=== PATIENT | male | born 1955 | race Caucasian/White ===

== ENCOUNTER 2021-11-13 11:20 | Emergency (ER) | payer OTHER, MEDICARE, SELFPAY ==
[2021-11-13 11:50] VITALS: BP 171/91; PULSE 71; RESP 16; TEMP 36.9; O2SAT 99; BMI 20.7
--- NOTE | 2021-11-13 12:07 | XR_ITS ---
WS: [id number] XR shoulder RT min 2V* [id number] REASON FOR EXAM: stack of wood fell on pt shoulder FINDINGS: No acute fracture. 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 There is mild narrowing of the glenohumeral joint space. Small focal deformity with sclerosis seen in the humeral head on the internal rotation. This is assoc iated with sclerosis and deformity of the inferior glenoid. XR/XR shoulder RT min 2V* [id number] IMPRESSION: No acute abnormality identified. Old traumatic change in the distal clavicle and AC joint as above. Findings in the glenohumeral joint suggests Hill-Sachs and Bankart lesions would suggest pr evious anterior dislocation. Historical correlation to be made.
--- NOTE | 2021-11-13 12:07 | XR_ITS ---
WS: [id number] XR ribs BI mn 4V w CXR1V [id number] REASON FOR EXAM: stack of wood fell onto pt-bilateral rib pain FINDINGS: RIGHT RIBS: No fracture or other focal bone lesion. Underlying right lung and pleura are unremarkable. LEFT RIBS: Very subtle deformity of left ribs laterally 7 through 9. Uncertain whether this represents old heale d or subacute fractures. No abnormality of the underlying left lung or pleura. XR/XR ribs BI mn 4V w CXR1V [id number] IMPRESSION: No acute right rib abnormality. Subtle abnormality of the left ribs as above.
--- NOTE | 2021-11-13 12:09 | ED_ITS ---
HPI - Extremity Problem General: Chief complaint: Extremity Injury, Upper Stated complaint: fall, rib pain, right shoulder pain Time Seen by Provider: 11/13/21 11:55 History of Present Illness: Patient is a 66-year-old male that comes to the ED with right shoulder bilateral rib pain. Injury occurred approximately 5 days ago. Patient said he was getting some firewood from tall stack of wood outside. He was grabbing a piece of firewood off the top and then couple of other pieces of wood fell down and hit him in his shoulder and chest. He has been having pleuritic rib pain and tenderness on both the left and right side along with right shoulder pain since injury. Any torso movement, upper extremity movement or coughing worsens the rib pain. He rates his pain currently 9 out of 10. Denies any head trauma or loss of consciousness. Associated symptoms: Deny chest pain, fever(s) or rash Review of Systems Const: Denies: fever(s), chills or fatigue Eyes: Denies: change in vision or eye discomfort ENMT: Denies: throat pain, odynophagia, nasal discharge or nasal congestion Card: Denies: chest pain, palpitations, edema, swelling of feet/ankles, dyspnea on exertion or orthopnea Resp: Reports: pain on inspiration (bilateral lower rib pain); Denies: dyspnea, productive cough or non-productive cough GI: Denies: abdominal pain, nausea, vomiting, diarrhea, constipation or hematochezia : Denies: flank pain, difficulty urinating, dysuria or hematuria Musc: Reports: extremity pain (right shoulder); Denies: neck pain, back pain or extremity swelling Skin/Breast: Denies: rash or new lesions Neuro: Denies: headache(s), numbness in extremities or weakness in extremities [facility] ED PFSH: Medical History No pertinent family history Surgical History No pertinent past surgical history Physical Exam Const: COMMON NORMALS: no acute distress, patient oriented x3 and alert GENERAL APPEARANCE: cooperative and comfortable HENMT: COMMON NORMALS: normocephalic HEAD & SCALP: normocephalic MOUTH: Normal oral and palatal mucosa present THROAT: posterior oropharynx normal and uvula midline Neck/C-Spine: COMMON NORMALS: supple GENERAL: Yes normal visual inspection Chest: CHEST: Yes tenderness rib left anterior-axillary line involving the 8th rib and involving the 9th rib Resp: COMMON NORMALS: normal respiratory effort, No retractions, No use of accessory muscles and clear to auscultation bilaterally AUSCULTATION: clear to auscultation bilaterally Cardio: COMMON NORMALS: regular rate, regular rhythm, S1 normal heart sound present, S2 normal heart sound present, No gallops present (Cardio), No clicks present (Cardio), No murmurs present (Cardio) and Peripheral pulses 2+ throughout RATE: regular rate RHYTHM: regular rhythm HEART SOUNDS: S1 normal heart sound present and S2 normal heart sound present PERIPHERAL PULSES: Peripheral pulses 2+ throughout GI: COMMON NORMALS: Normal to inspection, nondistended, normoactive bowel sounds present, Soft to palpation, non-tender and no masses PALPATION: Yes Soft to palpation : COMMON NORMALS: Yes no CVA tenderness BLADDER/KIDNEY EXAM: Yes no CVA tenderness Back/Pelvis: COMMON NORMALS: no CVA tenderness Extremity: GENERAL: Yes normal exam except as noted RIGHT UPPER EXTREMITY: Yes shoulder joint Right shoulder: Yes Right shoulder joint inspection exam (No visible deformity seen. Tenderness at AC joint), Yes palpation, Yes Right shoulder joint ROM exam (Pain with abduction of right arm) and Yes Right shoulder joint neurovascular exam (Intact) Neuro: COMMON NORMALS: patient oriented x3 and moves all extremities SENSORIUM/ORIENTATION: Yes alert Course Vital Signs: Vital signs: Vital Signs Temperature 98.4 F 11/13/21 11:50 Pulse Rate 66 11/13/21 13:39 Respiratory Rate 16 11/13/21 13:39 Blood Pressure 151/78 11/13/21 13:39 Pulse Oximetry 99 11/13/21 13:39 MDM - Extremity (Nontraumatic) Medical Decision Making Patient is a 66-year-old male comes to the ED with an injury to right shoulder and ribs. Vitals stable. Patient has some left lower rib tenderness and some right shoulder tenderness to palpation. Neurovascular intact distally on right arm. The rest of exam is benign. X-ray of ribs showed possible subacute fractures on the left ribs 8 and 9. Shoulder x-ray showed no acute abnormality identified. Possible old glenohumeral joint injury. I placed an order with case management for patient to be referred to Ortho for further evaluation of shoulder injury. Patient diagnosed with right shoulder injury and rib fractures. Patient was sent home with a prescription for hydrocodone for pain. He was also sent home with an incentive spirometer to help with his breathing and to prevent any atelectasis and pneumonia developing. Return to ED precautions given. Patient was all to follow-up with his PCP in 3 to 5 days for reevaluation. Patient understood and agree with plan. Lab Data Radiology Impressions Ribs w/Chest X-Ray 11/13/21 12:07 IMPRESSION: No acute right rib abnormality. Subtle abnormality of the left ribs as above. Shoulder X-Ray 11/13/21 12:07 IMPRESSION: No acute abnormality identified. Old traumatic change in the distal clavicle and AC joint as above. Findings in the glenohumeral joint suggests Hill-Sachs and Bankart lesions would suggest previous anterior dislocation. Historical correlation to be made. Discharge Plan Discharge Patient Disposition: Home Clinical Impression: Rib fractures Qualifiers: Encounter type: initial encounter Fracture type: closed Laterality: left Qualified Code(s): S22.42XA - Multiple fractures of ribs, left side, initial encounter for closed fracture Injury of shoulder, right Qualifiers: Encounter type: initial encounter Qualified Code(s): S49.91XA - Unspecified injury of right shoulder and upper arm, initial encounter Condition: Stable Prescriptions: New ibuprofen 800 mg tablet 800 mg PO Q8H PRN (Reason: pain) Qty: 30 0RF Discharge Orders: Discharge ED (Routine); Ordered 11/13/21 Ordered By: Walter Ayala Discharge Diet: Regular Discharge Activity: Limit activity as instructed Patient Instructions: Rib Fracture (ED), Shoulder Pain (ED), Opioid Safety Activity Restrictions/Additional Instructions: Follow-up with medical provider as directed in the next 3 to 5 days for reevaluation. Case management should be contacting you in the next several days to set up an appointment with Ortho for further follow-up and management of right shoulder pain. Take medications as prescribed. return to the ER or your medical provider if condition worsens. Please read and understand discharge instructions. Thank you for choosing [facility] for your healthcare needs today. Please realize this is an emergency room and that we are providing you with a medical screening exam and this may not be complete and all inclusive of all the testing and or work up that you may need to determine your ailment or severity of your illness. It is very important that you follow up as instructed or that you return to the Emergency Department should you have concerns or if your condition changes or worsens in any way. Coding Level of Care Code ED Repair Service Dispatcher for Walter Jesus Exam Comprehensive
[2021-11-13] MEDS: HYDROcodone-acetaminophen 7.5-325 mg Tablet 1 TAB PO (12:15)
[2021-11-13 13:39] VITALS: BP 151/78; PULSE 66; RESP 16; O2SAT 99
--- NOTE | 2021-11-14 09:02 | DCPLANNER ---
Addendum entered by Jeri Lyons 12/01/21 11:30: Patient had a follow up appointment scheduled for 11.21.21 with Jose STATON - patient did attend appointment. Addendum entered by Jeri Lyons 11/17/21 05:30: Patient has a follow up appointment scheduled for Sunday, November 21, 2021 at 10:30 with Jose MEYERS. Clinic will call patient with appointment information. Original Note: dock manager had message to schedule a follow up appointment for patient with ortho. dock manager called the ortho clinic, spoke with Cheri, gave clinic patients information. dock manager was told that patients information would be printed and reviewed. Clinic will call patient with appointment information.
== END 2021-11-13 13:40 | disposition home or self-care (01) ==
PROVIDERS: Emergency Provider Physician Assistant
DX: S22.42XA Multiple fractures of ribs, left side, initial encounter for closed fracture (principal); S49.91XA Unspecified injury of right shoulder and upper arm, initial encounter; W20.8XXA Other cause of strike by thrown, projected or falling object, initial encounter
CPT/HCPCS: 71111; 73030; 99283

== ENCOUNTER → 2021-11-21 10:33 | Outpatient (BNVA) | payer OTHER, MEDICARE, SELFPAY | PROVIDERS: Referring Provider Physician Assistant; Visit Provider Physician Assistant | DX: S49.91XA Unspecified injury of right shoulder and upper arm, initial encounter (principal); X58.XXXA Exposure to other specified factors, initial encounter | CPT/HCPCS: 73030 ==

== ENCOUNTER → 2025-01-26 09:17 | Outpatient (BNVA) | payer OTHER, SELFPAY | PROVIDERS: Visit Provider Surgery | DX: K46.9 Unspecified abdominal hernia without obstruction or gangrene (principal) | CPT/HCPCS: 99203 ==

== ENCOUNTER 2025-02-01 11:29 | Outpatient (CLI) | payer OTHER, SELFPAY ==
[2025-02-01 13:27] LABS: Blood Urea Nitrogen 7 mg/dL (8-23); Glomerular Filtration Rate 66.6 mL/min (90-130)
--- NOTE | 2025-02-01 13:30 | CT_ITS ---
WS: [id number] CT ABDOMEN AND PELVIS WITH CONTRAST HISTORY: recurrent right inguinal hernia TECHNIQUE: Imaging performed of the abdomen and pelvis with IV contrast. Single phase imaging of the abdomen. Coronal and sagittal reformats are submitted. All CT scans at [facility] use at least one of these dose optimization techniques: automated exposure control; mA and/or kV adjustment per patient size (includes targeted exams where dose is matched to clinical indication); or iterative reconstruction. IV CONTRAST: Omnipaque 350; 100 mL IV. Oral contrast: Yes. DLP: 266.61 mGy.cm COMPARISON: None available. Lower thorax: Hyperinflated lung bases from emphysema. LEFT lower lobe subpleural nodules measuring up to 3 mm. No mass. Heart is normal size. Small hiatal hernia. Liver/biliary system: Normal size with no intrahepatic dilatation. Gallbladder: Normal. No gallstones or wall thickening. No pericholecystic fluid. Pancreas: Normal size pancreas and pancreatic duct. No adjacent inflammation. Spleen: Normal size spleen. No mass or infarct. Adrenal glands: Normal. Right kidney: Normal size with no obstruction. There are a few tiny cortical hypodensities. No calcifications. Left kidney: Normal size with no obstruction. 2.1 cm superior medial kidney. Aorta: Mild atherosclerosis with no aneurysm. Lymphadenopathy: None. Free fluid: None. GI tract: Nondistended stomach. No small bowel obstruction. Normal appendix. Beginning in the descending colon and extending to the rectum is marked colonic wall thickening with numerous diverticula. There is asymmetric thickening at several locations. Focal diverticulum from the distal LEFT lateral sigmoid in contact with a loop of more distal redundant sigmoid/rectum. No definite fistula although there is contact via the diverticula. There is an fistulous communication between the sigmoid and the bladder wall. Abscess within the fundus of the bladder wall just central and the LEFT of the midline measures 2.1 x 0.8 cm. There is continuity with a sigmoid diverticulum into the bladder wall. There is marked diffuse bladder wall thickening. Abdominal wall: Ventral abdominal wall hernia at the umbilicus contains fat only. Patent LEFT inguinal canal. Contains fat only. Pelvis: No free fluid. Marked diffuse bladder wall thickening. There is a tiny focus of air within the urinary bladder and also abscess within the bladder wall near the fundus. Bones: Degenerative disc disease at L4-5. CT/CT abdomen pelvis w con* [id number] IMPRESSION: 1. Colovesical fistula. There is a fistula between the sigmoid colon and the f undus of the urinary bladder. Focal abscess within the bladder wall measuring 2 .1 x 0.8 cm. There is no definite continuity of the fistula directly into the l umen of the bladder although there is a tiny focus of air in the urinary bladde r. 2. Severe extensive distal colonic and sigmoid diverticulosis with marked wall thickening and asymmetry of the lumen. Colonoscopy will eventually need to be performed to exclude underlying mass. 3. Diffuse bladder wall thickening. 4. There is an additional redundant sigmoid with diverticula in contact with a loop of more distal colon. No fistula at this time but there is no separation between the colon wall. 5. Fat-containing umbilical hernia. 6. Fat-containing LEFT inguinal hernia. 7. Normal appendix. 8. No renal obstruction.
[2025-02-01] MEDS: iohexol 350 mg/mL 500 mL Btl (per mL) IV (13:34)
[2025-02-01] MEDS: iohexol 350 mg/mL 500 mL Btl (per mL) PO (13:35)
== END 2025-02-01 11:30 | disposition home or self-care (01) ==
LOC: RAD 11:36
PROVIDERS: PCP Family Medicine; Visit Provider Surgery
DX: K42.9 Umbilical hernia without obstruction or gangrene (principal); N32.1 Vesicointestinal fistula; R93.89 Abnormal findings on diagnostic imaging of other specified body structures; K57.30 Diverticulosis of large intestine without perforation or abscess without bleeding; N32.89 Other specified disorders of bladder; K40.90 Unilateral inguinal hernia, without obstruction or gangrene, not specified as recurrent; J43.9 Emphysema, unspecified; R91.8 Other nonspecific abnormal finding of lung field; K44.9 Diaphragmatic hernia without obstruction or gangrene; I70.0 Atherosclerosis of aorta; K43.9 Ventral hernia without obstruction or gangrene; M51.369 Other intervertebral disc degeneration, lumbar region without mention of lumbar back pain or lower extremity pain
CPT/HCPCS: 74177; 82565; 84520

== ENCOUNTER → 2025-02-03 12:29 | Outpatient (BNVA) | payer OTHER, SELFPAY | PROVIDERS: PCP Family Medicine; Referring Provider Surgery; Visit Provider Surgery | DX: Z09 Encounter for follow-up examination after completed treatment for conditions other than malignant neoplasm (principal); R03.0 Elevated blood-pressure reading, without diagnosis of hypertension; N32.1 Vesicointestinal fistula | CPT/HCPCS: 99214 ==

== ENCOUNTER 2025-06-04 11:54 | Inpatient (IN) | payer OTHER, SELFPAY ==
[2025-06-04] VITALS (40 sets, daily range): BP systolic 86–112; BP diastolic 46–65; PULSE 54–73; RESP 13–27; TEMP 36.4–36.6; O2SAT 92–100; BMI 18.6
--- NOTE | 2025-06-04 11:57 | ECG_ITS ---
[facility] Test Date: 2025-06-04 Pat Name: Sagar Beverly Department: Room: Gender: Male Urgent Care Technician: : 1955 Requested By: Tho Zuñiga Order Number: [id number] Karo MD: Sriram Talavera M.D. Measurements Intervals [place] Rate: 61 P: 80 WV: 158 QRS: 79 QRSD: 70 T: 76 QT: 414 QTc: 417 Interpretive Statements SINUS RHYTHM No previous ECG available for comparison Electronically Signed On 06-04-2025 22:38:02 CDT by Sriram Talavera M.D. [email or web address]
[2025-06-04 12:16] LABS: Hematocrit 42.0 % (37-53); Hemoglobin 14.30 g/dL (11.27-16.99); Mean Corpuscular HGB Conc 34.0 g/dL (30-55); Mean Corpuscular Hemoglobin 31.4 pg (27-33); Mean Corpuscular Volume 92.1 fl (82-101); Nucleated Red Blood Cells % 0 %; Platelet Count 302 10^3/cmm (157-399); Red Blood Count 4.56 10^6/uL (3.85-5.65); White Blood Count 15.63 10^3/uL (3.29-11.43)
--- NOTE | 2025-06-04 12:21 | W.ED.ABDPA2 ---
HPI - Abdominal Pain General: Chief Complaint: Abdominal Pain Stated Complaint: abd pain, htn Time Seen by Provider: 06/04/25 11:56 History of Present Illness: 70-year-old male presents emergency room via EMS for complaints of abdominal pain. Patient previous had a colon resection as a ileostomy due to a colon resection for acute diverticulitis. This was done just a few months ago shortly after that he developed an ulcer and had to be transferred back to [place]. Patient is currently complaining of severe abdominal pain he still is getting output from his colostomy he has been very nauseous. He has not been able to keep anything down he has vomited multiple times. He denies any hematemesis or coffee-ground emesis. No fever no dysuria urgency or frequency Associated Symptoms: Reports bloating, GI cramping, nausea and vomiting; Denies chills, coffee ground emesis, dysuria, fever(s), hematochezia and hematemesis Related Data Home Medications ?Medication ?Instructions ?Recorded ?Confirmed lisinopril 20 mg tablet 20 mg PO DAILY 01/26/25 06/04/25 loperamide 2 mg capsule 2 mg PO Q6H PRN Diarrhea 06/04/25 06/04/25 ondansetron 8 mg disintegrating 8 mg PO Q8H PRN Nausea And Vomiting 06/04/25 06/04/25 tablet oxycodone 5 mg tablet 10 mg PO Q4H PRN Pain 06/04/25 06/04/25 pantoprazole 40 mg tablet,delayed 40 mg PO BID 06/04/25 06/04/25 release Allergies Allergy/AdvReac Type Severity Reaction Status Date / Time No Known Allergies Allergy Verified 06/04/25 12:07 Review of Systems Const: Denies: fever(s) or chills Card: Denies: chest pain Resp: Denies: dyspnea GI: Reports: abdominal pain, nausea, vomiting, bloating and GI cramping; Denies: hematemesis, coffee ground emesis or hematochezia : Denies: dysuria, urinary frequency or urinary urgency Musc: Denies: neck pain or back pain Skin/Breast: Denies: rash PFSH ED PFSH: Medical History No pertinent family history Surgical History No pertinent past surgical history Physical Exam Const: GENERAL APPEARANCE: cooperative ORIENTATION/CONSCIOUSNESS: Yes awake, Yes oriented to person, Yes oriented to place and Yes oriented to time HENMT: COMMON NORMALS: normocephalic, atraumatic and hearing grossly normal bilaterally HEAD & SCALP: normocephalic and atraumatic Resp: COMMON NORMALS: normal respiratory effort, No retractions, No use of accessory muscles and clear to auscultation bilaterally AUSCULTATION: clear to auscultation bilaterally Cardio: COMMON NORMALS: regular rate, regular rhythm and No murmurs present (Cardio) RATE: regular rate RHYTHM: regular rhythm GI: COMMON NORMALS: Soft to palpation and No hepatosplenomegaly present AUSCULTATION: Yes normoactive bowel sounds PALPATION: Yes Soft to palpation, No Tenderness to palpation present (GI), No Guarding due to palpation present (GI) and Yes No hepatosplenomegaly present Extremity: COMMON NORMALS: normal to inspection, capillary refill normal, no clubbing, cyanosis or edema, no calf tenderness and no pedal edema Neuro: SENSORIUM/ORIENTATION: Yes oriented to person, Yes oriented to place and Yes oriented to time Skin: COMMON NORMALS: no rashes or lesions noted GENERAL SKIN EXAM: no rashes or lesions noted Course Vital Signs: Vital signs: Vital Signs Temperature 97.6 F 06/04/25 11:55 Pulse Rate 64 06/04/25 14:32 Blood Pressure 100/57 06/04/25 14:32 Pulse Oximetry 100 06/04/25 14:32 Oxygen Delivery Me thod Room Air 06/04/25 14:32 MDM - Abdominal Pain Medical Decision Making CT does not show any acute pathology. Patient does have acute kidney injury with hyperkalemia and given fluids and his hyperkalemia treated. Second EKG showed questionable ST [facility] [place] elevation at the time patient was having severe epigastric pain which she describes radiated to his chest. A STEMI alert was called. I discussed Dr. Tyson he was not convinced that this met the criteria for a STEMI. He was given aspirin and Plavix he was not given heparin per Dr. Tyson's recommendation an echocardiogram was done ejection fraction was normal and there is no acute wall motion abnormalities. Cardiac enzymes did not trend positive EKGs did not show any further changes. His symptoms are improved. With fluids as blood pressures improved as well. Will admit to CSU discussed with hospitalist orders written Medical Records I reviewed the patient's medical records. Lab Data I reviewed the patient's lab results. 06/04/25 12:11 06/04/25 12:11 Labs/Radiology: Radiology Impressions Abdomen/Pelvis CT 06/04/25 12:22 IMPRESSION: 1. Interval postoperative changes of partial sigmoid resection with RIGHT lower quadrant colostomy. 2. Previously described colovesical fistula has been resected. 3. No evidence of abscess or fluid collection. 4. Colostomy is patent. No evidence of obstruction. 5. No other acute findings in the abdomen or pelvis. 6. A few small subpleural nodules in the lower lobes recommend 6 to 12-month follow-up. The largest measures 6 mm LEFT lower lobe. 7. Chronic spondylolysis L5-S1 8. . Minimal anterolisthesis L5 on S1. Laboratory Results WBC 15.63 10^3/uL (3.29-11.43) H 06/04/25 12:11 RBC 4.56 10^6/uL (3.85-5.65) 06/04/25 12:11 Hgb 14.30 g/dL (11.27-16.99) 06/04/25 12:11 Hct 42.0 % (37-53) 06/04/25 12:11 MCV 92.1 fl (82-101) 06/04/25 12:11 MCH 31.4 pg (27-33) 06/04/25 12:11 MCHC 34.0 g/dL (30-55) 06/04/25 12:11 RDW 12.9 % (12.1-15.1) 06/04/25 12:11 Plt Count 302 10^3/cmm (157-399) 06/04/25 12:11 MPV 9.3 fL (7.4-10.4) 06/04/25 12:11 Neut % (Auto) 72.8 % 06/04/25 12:11 Lymph % (Auto) 19.2 % 06/04/25 12:11 [place] % (Auto) 7.2 % 06/04/25 12:11 Eos % (Auto) 0.1 % 06/04/25 12:11 Baso % (Auto) 0.3 % 06/04/25 12:11 Neut # (Auto) 11.37 10^3/uL (1.8-7.7) H 06/04/25 12:11 Lymph # (Auto) 3.0 10^3/uL (0.8-4.8) 06/04/25 12:11 [place] # (Auto) 1.1 10^3/uL (0.2-0.9) H 06/04/25 12:11 Eos # (Auto) 0.0 10^3/uL (0.0-0.8) 06/04/25 12:11 Baso # (Auto) 0.1 10^3/uL (0.0-0.1) 06/04/25 12:11 Nucleated RBC % (auto) 0 % 06/04/25 12:11 Nucleated RBCs # 0.0 /100WBC 06/04/25 12:11 Sodium 131 mmol/L (136-145) L 06/04/25 12:11 Potassium 5.6 mmol/L (3.5-5.1) H 06/04/25 12:11 Chloride 98 mmol/L (98-107) 06/04/25 12:11 Carbon Dioxide 17 mmol/L (22-29) L 06/04/25 12:11 Anion Gap 21.6 (5-19) H 06/04/25 12:11 BUN 39 mg/dL (8-23) H 06/04/25 12:11 Creatinine 4.3 mg/dL (0.7-1.2) H 06/04/25 12:11 GFR Calculation 13.8 mL/min (90-130) L 06/04/25 12:11 Glucose 89 mg/dL (65-115) 06/04/25 12:11 Calculated Osmolality 281 mOsm/kg (285-295) L 06/04/25 12:11 Calcium 8.8 mg/dL (8.5-10.5) 06/04/25 12:11 Total Bilirubin 0.4 mg/dL (0.15-1.2) 06/04/25 12:11 AST 13 U/L (0-40) 06/04/25 12:11 ALT 12 U/L (0-41) 06/04/25 12:11 Alkaline Phosphatase 62 U/L (40-130) 06/04/25 12:11 Troponin T Baseline 30 ng/L (0-15) H 06/04/25 12:11 Troponin T 120 Minute 29.47 ng/L (0-15) H 06/04/25 13:57 Delta Troponin T -0.53 ABS# (0-10) L 06/04/25 13:57 Total Protein 7.2 g/dL (6.6-8.7) 06/04/25 12:11 Albumin 3.8 g/dL (3.5-5.2) 06/04/25 12:11 Globulin 3.4 g/dL (1.3-4.6) 06/04/25 12:11 Lipase 121 U/L (13-60) H 06/04/25 12:11 Blood Type B Negative 06/04/25 12:01 Rho(D) Type Rh negative 06/04/25 12:01 Antibody Screen Negative 06/04/25 12:01 All radiology interpretation(s) finalized by discharge EKG Data EKG 1: Interpretation: EKG 06/04/2025 1208. Normal sinus rhythm rate of 81 QTc 417 [place] interval 158. No previous EKGs for comparison EKG 2: Interpretation: EKG 1240 06/04/2025 rate of 81 parable 189 QTc 418. There is subtle ST elevation possibly repull there is no reciprocal changes. Compared to EKG 829 at 1208 there are some subtle ST elevation changes in 2 3 and aVF as well as V2 and 3. Does not meet full criteria. EKG 3: Interpretation: EKG 06/04/2025 1250 sinus rhythm baseline artifact unchanged from EKG previous at 1248. Rate of 83 [place] interval 167 QTc 407 has a similar subtle changes with nondiagnostic ST elevation likely early repull Discharge Plan Discharge Patient Disposition: Admitted As Inpatient Clinical Impression: CALLI (acute kidney injury), Acute hyperkalemia, Colostomy present Condition: Stable Coding Level of Care Code ED Compounding Assistant for Walter Jesus
--- NOTE | 2025-06-04 12:22 | CT_ITS ---
WS: [id number] CT ABDOMEN PELVIS TECHNIQUE: Noncontrast CT of the abdomen and pelvis with coronal and sagittal reformatted images. CLINICAL INFORMATION: abd pain COMPARISON: 02/01/2025 DLP: 312.[address] scans at [facility] use at least one of these dose optimization techniques: automated exposure control; mA and/or kV adjustment per patient size (includes targeted exams where dose is matched to clinical indication); or iterative reconstruction. FINDINGS: Since the prior study, postoperative changes RIGHT lower quadrant colostomy with partial sigmoid colon resection. Previously described colovesical fistula has been resected. No evidence of drainable abscess or fluid collection. Colostomy appears patent. No evidence of bowel obstruction. A few small subpleural nodules in both lower lobes. The largest measures 6 mm LEFT lower lobe. Recommend 6 to 12-month follow-up. Normal noncontrast liver. Normal GE junction. Gallbladder is contracted. Normal noncontrast pancreas. Adrenal glands are normal. No hydronephrosis. LEFT renal cyst. Normal caliber abdominal aorta. Aortic calcification. Normal appendix in the RIGHT lower quadrant. Tiny fat-containing umbilical hernia. CT/CT abdomen pelvis wo con [id number] IMPRESSION: 1. Interval postoperative changes of partial sigmoid resection with RIGHT lowe r quadrant colostomy. 2. Previously described colovesical fistula has been resected. 3. No evidence of abscess or fluid collection. 4. Colostomy is patent. No evidence of obstruction. 5. No other acute findings in the abdomen or pelvis. 6. A few small subpleural nodules in the lower lobes recommend 6 to 12-month f ollow-up. The largest measures 6 mm LEFT lower lobe. 7. Chronic spondylolysis L5-S1 8. . Minimal anterolisthesis L5 on S1.
--- NOTE | 2025-06-04 12:22 | ECG_ITS ---
[facility] Test Date: 2025-06-04 Pat Name: Sagar Beverly Department: Room: Gender: Male Business Information Manager: : 1955 Requested By: Tho Zuñiga Order Number: [id number] Karo MD: Sriram Talavera M.D. Measurements Intervals [place] Rate: 61 P: 79 CT: 189 QRS: 78 QRSD: 54 T: 77 QT: 412 QTc: 418 Interpretive Statements SINUS RHYTHM EARLY REPOLARIZATION Compared to ECG 06/04/2025 12:08:49 ST (T wave) deviation now present Electronically Signed On 06-04-2025 22:37:50 CDT by Sriram Talavera M.D. [email or web address]
[2025-06-04 12:34] LABS: Alanine Aminotransferase 12 U/L (0-41); Albumin Level 3.8 g/dL (3.5-5.2); Alkaline Phosphatase 62 U/L (40-130); Anion Gap 21.6 (5-19); Aspartate Amino Transferase 13 U/L (0-40); Blood Urea Nitrogen 39 mg/dL (8-23); Calcium 8.8 mg/dL (8.5-10.5); Carbon Dioxide 17 mmol/L (22-29); Chloride 98 mmol/L (98-107); Creatinine Clr Calc Pharmacy 13.5228; Globulin 3.4 g/dL (1.3-4.6); Glucose 89 mg/dL (65-115); Lipase 121 U/L (13-60); Osmolality Calculated 281 mOsm/kg (285-295); Potassium 5.6 mmol/L (3.5-5.1); Sodium 131 mmol/L (136-145); Total Protein 7.2 g/dL (6.6-8.7)
--- NOTE | 2025-06-04 12:42 | ECG_ITS ---
[employer] Test Date: 2025-06-04 Pat Name: Sagar Beverly Department: Room: Gender: Male Records Management Clerk: : 1955 Requested By: Tho Zuñiga Order Number: [id number] Karo MD: Sriram Talavera M.D. Measurements Intervals [place] Rate: 63 P: 78 SC: 167 QRS: 73 QRSD: 82 T: 68 QT: 396 QTc: 407 Interpretive Statements SINUS RHYTHM Compared to ECG 06/04/2025 12:40:10 ST (T wave) deviation no longer present Myocardial infarct finding no longer present Electronically Signed On 06-04-2025 22:37:21 CDT by Sriram Talavera M.D. [id number] [id number]
--- NOTE | 2025-06-04 12:48 | PC.PHAR ---
Verified medications via [facility]. Lisinopril 20mg daily is in pt history from January but has not ever been filled at [facility]. Unable to locate where rx originated from.
--- NOTE | 2025-06-04 12:51 | USCV_ITS ---
Sagar Beverly Age: 70 Gender: M : 1955 Exam Date: 06/04/2025 13:33 Ordering Phys: Tho Potts DO Technologist: LITO [place] [facility] [place] Ind[place]: Acute OR BP: 92 / 56 HR: Rhythm: Sinus Technical Quality: Adequate MEASUREMENTS (Male / Female) Normal Values 2D ECHO LV Diastolic Diameter PLAX 3.8 cm 4.2 - 5.9 / 3.9 - 5.3 cm IVS Diastolic Thickness 0.6 cm 0.6 - 1.0 / 0.6 - 0.9 cm IVS Systolic Thickness 1.2 cm LVPW Diastolic Thickness 0.9 cm 0.6 - 1.0 / 0.6 - 0.9 cm LVPW Systolic Thickness 1.3 cm LVOT Diameter 2.0 cm LV Ejection Fraction 2D Teich 55.3 % LV Ejection Fraction MOD 4C 55.6 % LV Ejection Fraction MOD 2C 59.2 % LV Ejection Fraction 2C AL 60.2 % LA Diameter 3.3 cm RA Systolic Volume 4C AL 14.0 ml RA Systolic Volume 4C MOD 13.1 ml LA Sys Volume AL 21.5 cm cubed LA Sys Volume Index AL 12.7 cm cubed/m squared Aorta at Sinotubular Diameter 2.4 cm IVC Diameter 1.3 cm FINDINGS Left Ventricle Right Ventricle Right Atrium Left Atrium Mitral Valve Aortic Valve Tricuspid Valve Pulmonic Valve Pericardium Aorta IVC CONCLUSIONS Limited echocardiogram performed to assess LV systolic function LV systolic function is normal with EF of 55-60%. No regional wall motion abnormalities. RV is normal in size and function Sriram Talavera MD (Electronically Signed) Final Date: 04 June 2025 14:09 S
[2025-06-04 12:58] LABS: Troponin(5th) Baseline 30 ng/L (0-15)
[2025-06-04 14:30] LABS: Troponin 5 2HR 29.47 ng/L (0-15)
[2025-06-04 14:31] LABS: Troponin 5 2HR Delta -0.53 ABS# (0-10)
--- NOTE | 2025-06-04 15:20 | ECG_ITS ---
[place] Test Date: 2025-06-04 Pat Name: Sagar Beverly Department: Room: Gender: Male Personal Development Mentor: : 1955 Requested By: Tho Zuñiga Order Number: [id number] Karo MD: Sriram Talavera M.D. Measurements Intervals [place] Rate: 67 P: 76 WI: 187 QRS: 72 QRSD: 67 T: 76 QT: 398 QTc: 422 Interpretive Statements SINUS RHYTHM Compared to ECG 06/04/2025 12:50:21 No significant changes Electronically Signed On 06-04-2025 22:50:47 CDT by Sriram Talavera M.D. [id number]
--- NOTE | 2025-06-04 15:56 | PM.HP ---
Providers/Chief Complaint Primary Care Provider: Miley Ray MD Chief Complaint: abd pain, htn History of Present Illness Sagar Beverly is a 70 year old male presents with severe abdominal pain that started yesterday. Patient has a history of colon resection with ileostomy due to acute diverticulosis a few months ago. Then approximately a month ago patient had an ulcer with active bleeding and had to return to [place]. Since then he states he has not been feeling well he has got a poor appetite and he remains nauseous. He states in the last 24 hours he has vomited multiple times he has not been able to keep anything down. He denies hematemesis or coffee-ground emesis. He denies any urinary discomfort or decreased flow. Review of Systems Const: Denies: fever(s) or chills Eyes: Denies: change in vision ENMT: Denies: throat pain or nasal congestion Card: Denies: chest pain or palpitations Resp: Denies: dyspnea or productive cough GI: Reports: abdominal pain, nausea and vomiting; Denies: hematemesis, coffee ground emesis or change in stool character : Denies: difficulty urinating or dysuria Musc: Denies: back pain or extremity pain Skin/Breast: Denies: rash or lesions Neuro: Denies: headache(s) or dizziness Psych: Denies: anxiety or depression Julius/Lymph: Denies: easy bruising or easy bleeding Medications/Allergies Home Medications ?Medication ?Instructions ?Recorded ?Confirmed ?Last Taken ?Type lisinopril 20 mg tablet 20 mg PO DAILY 01/26/25 06/04/25 Unknown History loperamide 2 mg capsule 2 mg PO Q6H PRN Diarrhea 06/04/25 06/04/25 Unknown History ondansetron 8 mg disintegrating 8 mg PO Q8H PRN Nausea And Vomiting 06/04/25 06/04/25 Unknown History tablet oxycodone 5 mg tablet 10 mg PO Q4H PRN Pain 06/04/25 06/04/25 Unknown History pantoprazole 40 mg tablet,delayed 40 mg PO BID 06/04/25 06/04/25 Unknown History release Allergies Allergy/AdvReac Type Severity Reaction Status Date / Time No Known Allergies Allergy Verified 06/04/25 12:07 Additional Medication Information Patient's past medical history is significant for colorectal fistula requiring ileostomy. Patient had a gastric ulcer. Otherwise patient denies any significant CAD's CHF CVA or lung problems Past surgical history colorectal fistula repair with ileostomy Patient reports of weight loss from 162 in November to 128 currently. This is due to nausea vomiting and lack of appetite and abdominal pain PFSH Acute PFSH: Medical History No pertinent family history Surgical History No pertinent past surgical history Vitals/I&O/Wt Last Vital Signs Temp 97.6 F 06/04/25 11:55 Pulse 64 06/04/25 14:32 BP 100/57 06/04/25 14:32 Pulse Ox 100 06/04/25 14:32 O2 Del Method Room Air 06/04/25 14:32 Weight last 48 hrs Weight 58.967 kg Physical Exam Narrative: Thin white male who appears older than 70 Neuro he is alert and oriented to person place time and situation he has a nonfocal exam HEENT head is normocephalic atraumatic pupils equal round reactive to light and accommodation extraocular muscles intact mucous membranes are pale and dry neck is supple no JVD carotid bruits or lymphadenopathy Heart is regular normal S1-S2 without murmurs clicks or gallops. Distant heart sounds Lungs clear to auscultation anteriorly Abdomen is flat he has an ileostomy in place with a full bag of watery stool-light brown liquid. He is tender in the bilateral lower quadrants no rebound rigidity or guarding Extremities no clubbing cyanosis or edema Psych mood and affect are appropriate for medical condition Skin no rashes or lesions noted Back no significant kyphosis or scoliosis noted Data 06/04/25 12:11 06/04/25 12:11 Other Labs: Lipase 121 Micro: Microbiology 06/04/25 12:52 Blood Culture - Preliminary Blood SPECIMEN COLLECTED 06/04/25 13:01 Blood Culture - Preliminary Blood SPECIMEN COLLECTED CT Abd/Pel: Radiologist's impression: IMPRESSION: 1. Interval postoperative changes of partial sigmoid resection with RIGHT lower quadrant colostomy. 2. Previously described colovesical fistula has been resected. 3. No evidence of abscess or fluid collection. 4. Colostomy is patent. No evidence of obstruction. 5. No other acute findings in the abdomen or pelvis. 6. A few small subpleural nodules in the lower lobes recommend 6 to 12-month follow-up. The largest measures 6 mm LEFT lower lobe. 7. Chronic spondylolysis L5-S1 8. . Minimal anterolisthesis L5 on S1. Echo: Radiologist's impression: Cardiology impression Limited echocardiogram performed to assess LV systolic function LV systolic function is normal with EF of 55-60%. No regional wall motion abnormalities. RV is normal in size and function A&P Assessment and plan 1. Colostomy present: 2. CALLI (acute kidney injury): 3. Acute hyperkalemia: 4. Abdominal pain: Plan: Patient provide initially presented per the ER with abdominal pain that radiated into his chest. As per ER notes cardiology reviewed the EKG and their impression was no ST segment elevation. To be complete an echo limited was done and showed normal wall motion with a normal ejection fraction. However patient will be placed in the CSU for telemetry monitoring Abdominal pain: patient will be kept n.p.o. IV fluids and pain medication. I do note an elevated lipase the Noncon contrast CT did not comment about a pancreatitis. CALLI: Patient will be given IV fluids his BUN/creatinine ratio appears to be intrinsic kidney failure from unknown source except for Protonix. At this time we will hold Protonix. If the creatinine worsens will consider nephrology consult Avoid nephrotoxic agents no NSAIDs no heparin ordered low molecular weight heparin products Possible urinary tract infection: Reportedly UA was ordered but does not appear to be obtained. PDMP PDMP Reviewed: Not Reviewed Attestations Medical Necessity Statement*: Patient with acute kidney failure that appears to be intrinsic. Patient will need IV fluids, close monitoring Coding Level of Care Code Acute Code for [facility] Diagnoses Colostomy present Z93.3 CALLI (acute kidney injury) N17.9 Acute hyperkalemia E87.5 Abdominal pain R10.9
[2025-06-04] MEDS: calcium chloride 10% Syr 10 mL 1 GM IVP (16:12)
[2025-06-04] MEDS: sodium bicarbonate 8.4% syr 150 MEQ in dextrose 5% 200 ML 700 MEQ IV (16:12)
--- NOTE | 2025-06-04 17:51 | PC.NURSE ---
Dr. Mcmullen was contacted about ordering some dextrose to go with the insulin push for the hyperkalemia. Dr. Mcmullen ordered to not give the insilin and to change the fluids from normal saline to dextrose 5% normal saline running at 125.
[2025-06-04 17:59] LABS: Glucose Urine UA 2+ (Normal); Nitrate Urine Negative (Negative); Specific Gravity, Urine 1.013 (1.005-1.030)
[2025-06-04] MEDS: morphine 4 mg/mL SDV 1 mL 2 MG IVP ×2 (17:59→22:19)
[2025-06-04 18:04] LABS: Add Urine Microscopic? YES
[2025-06-04] MEDS: dextrose 5%-sod chloride 0.9% 1,000 ML 125 ML IV (18:15)
--- NOTE | 2025-06-04 18:42 | ECG_ITS ---
[facility] Test Date: 2025-06-04 Pat Name: Sagar Beverly Department: Room: 107 Gender: Male Corner Former: : 1955 Requested By: Tho Zuñiga Order Number: [id number] Karo MD: Sriram Talavera M.D. Measurements Intervals [place] Rate: 60 P: 81 CA: 160 QRS: 76 QRSD: 67 T: 74 QT: 411 QTc: 414 Interpretive Statements SINUS RHYTHM Compared to ECG 06/04/2025 15:20:23 No significant changes Electronically Signed On 06-04-2025 22:50:20 CDT by Sriram Talavera M.D. [id number]
[2025-06-04 19:08] LABS: Troponin 5 6HR 29.49 ng/L (0-15); Troponin 5 6HR Delta -0.51 ng/L (0-12)
[2025-06-05] VITALS (103 sets, daily range): BP systolic 71–130; BP diastolic 42–83; PULSE 48–83; RESP 1–25; TEMP 36.6–36.9; O2SAT 95–100; BMI 19.1
[2025-06-05] MEDS: dextrose 5%-sod chloride 0.9% 1,000 ML 125 ML IV ×3 (01:04→22:20)
[2025-06-05] MEDS: metroNIDAZOLE IV 500 MG/100 ML PREMIX 100 MG IV ×4 (03:05→20:11)
[2025-06-05] MEDS: norepinephrine 4 MG/250 ML BAG 7.5 MG IV (03:33)
--- NOTE | 2025-06-05 04:22 | PC.NURSE ---
notified hospitalist of low bp, 250 ml NS bolus given with no improvement, 1L NS bolus given with sbp increasing to 90's initially but dropping into 70s-80s, order to start levophed and transfer to ICU
[2025-06-05 05:03] LABS: Hematocrit 39.3 % (37-53); Hemoglobin 13.70 g/dL (11.27-16.99); Mean Corpuscular HGB Conc 34.9 g/dL (30-55); Mean Corpuscular Hemoglobin 32.0 pg (27-33); Mean Corpuscular Volume 91.8 fl (82-101); Nucleated Red Blood Cells % 0 %; Platelet Count 285 10^3/cmm (157-399); Red Blood Count 4.28 10^6/uL (3.85-5.65); White Blood Count 10.88 10^3/uL (3.29-11.43)
[2025-06-05 05:26] LABS: Anion Gap 16.9 (5-19); Blood Urea Nitrogen 37 mg/dL (8-23); Calcium 8.6 mg/dL (8.5-10.5); Carbon Dioxide 19 mmol/L (22-29); Chloride 104 mmol/L (98-107); Creatinine Clr Calc Pharmacy 15.2824; Glucose 98 mg/dL (65-115); Osmolality Calculated 291 mOsm/kg (285-295); Potassium 3.9 mmol/L (3.5-5.1); Sodium 136 mmol/L (136-145)
[2025-06-05] MEDS: morphine 4 mg/mL SDV 1 mL 2 MG IVP ×3 (07:20→17:55)
--- NOTE | 2025-06-05 09:08 | P.PN_ITS ---
Subjective 2 Subjective: Overnight events. Patient was placed on the [facility] floor. Patient had documented low blood pressure. He was transferred to the ICU overnight for Levophed. This morning his blood pressures are still soft despite Levophed. He does report feeling markedly improved. He states that his lower abdominal pain although severe is still the same as its been since initial surgery. The abdominal pain that he had going midline up to his chest is now relieved. And again overall he states he feels improved Of note the patient reported that he had at tick in his abdominal incision that they just recently noticed and removed. Vitals/I&O/Wt Last Vital Signs Temp 98.0 F 06/05/25 07:00 Pulse 50 L 06/05/25 07:00 Resp 17 06/05/25 07:20 BP 91/55 06/05/25 07:00 Pulse Ox 99 06/05/25 07:20 O2 Del Method Room Air 06/05/25 07:00 06/04/25 06/05/25 06/05/25 22:59 06:59 14:59 Intake Total 1350 / 1350 2743.750 / 4093.750 Output Total 300 / 300 450 / 750 Balance 1050 / 1050 2293.750 / 3343.750 Weight last 48 hrs Weight 60.441 kg Weight 58.967 kg Weight 58.967 kg Physical Exam 2 Narrative: Thin white male who appears older than 70 Heart : Very distant heart sounds unable to auscultate while patient lying flat Lungs clear to auscultation anteriorly Abdomen is flat he has an ileostomy in place with a full bag of watery stool- light brown liquid. He is tender in the bilateral lower quadrants no rebound rigidity or guarding Extremities no clubbing cyanosis or edema Urinary Catheter Management: Villela: Cath Placed During This Visit: yes Reason for Continuing Indwelling Catheter: Acute Urinary Retention or Obstruction Urinary Catheter Date of Insertion: 06/04/25 Urinary Catheter Time of Insertion: 18:35 Data 06/05/25 04:25 06/05/25 04:25 Micro: Microbiology 06/05/25 04:19 Blood Culture - Preliminary Blood SPECIMEN COLLECTED 06/05/25 04:25 Blood Culture - Preliminary Blood SPECIMEN COLLECTED 06/04/25 12:52 Blood Culture - Preliminary Blood SPECIMEN COLLECTED 06/04/25 13:01 Blood Culture - Preliminary Blood SPECIMEN COLLECTED A&P Assessment and plan 1. CALLI (acute kidney injury): 2. Acute hyperkalemia: 3. Abdominal pain: 4. Colostomy present: 5. Hypotension: 6. Tick bite of abdomen: Plan: Hypotension. Continue Levophed. No identifiable viable reason for cortisol insufficiency. No history of steroid use. Reported tick bite: There is no laboratory abnormality that would indicate tick bite. Patient initially was not on antibiotics. He was placed on Flagyl overnight due to hypotension. We could send stool for C. difficile. Abdominal pain: patient will be kept n.p.o. IV fluids and pain medication. I do note an elevated lipase the Noncon contrast CT did not comment about a pancreatitis. - Patient receiving low-dose morphine for the pain. - Will check C. difficile CALLI: - Patient is responding to IV fluids. His BUN and creatinine is down to 37/3.9. Will continue fluid resuscitation -Continue to hold Protonix - Avoid nephrotoxic agents no NSAIDs no heparin ordered low molecular weight heparin products Possible urinary tract infection: UA appears negative for urinary tract infection no leukocyte esterase no bacteria seen negative nitrite. There is however +1 blood 2+ glucose and 2+ protein PDMP PDMP Reviewed: Not Reviewed Attestations 2 Medical Necessity Statement*: Patient with new hypotension overnight will require 2 midnight stay for the treatment of hypotension and acute kidney injury. Coding Level of Care Code Acute Code for [facility] Diagnoses CALLI (acute kidney injury) N17.9 Acute hyperkalemia E87.5 Abdominal pain R10.9 Colostomy present Z93.3 Hypotension I95.9 Tick bite of abdomen S30.861A; W57.XXXA
[2025-06-05 10:28] LABS: C.Diff PCR (Lab) NEGATIVE (Negative)
[2025-06-05] MEDS: oxyCODONE 5 mg IR Tab/Cap 10 MG PO (22:13)
[2025-06-06] VITALS (47 sets, daily range): BP systolic 91–139; BP diastolic 51–88; PULSE 51–102; RESP 7–29; TEMP 36.6–36.8; O2SAT 95–100
[2025-06-06] MEDS: metroNIDAZOLE IV 500 MG/100 ML PREMIX 100 MG IV ×4 (02:25→20:35)
[2025-06-06] MEDS: oxyCODONE 5 mg IR Tab/Cap 10 MG PO ×5 (02:27→21:53)
[2025-06-06 03:48] LABS: Hematocrit 35.2 % (37-53); Hemoglobin 12.10 g/dL (11.27-16.99); Mean Corpuscular HGB Conc 34.4 g/dL (30-55); Mean Corpuscular Hemoglobin 32.1 pg (27-33); Mean Corpuscular Volume 93.4 fl (82-101); Nucleated Red Blood Cells % 0 %; Platelet Count 221 10^3/cmm (157-399); Red Blood Count 3.77 10^6/uL (3.85-5.65); White Blood Count 7.93 10^3/uL (3.29-11.43)
[2025-06-06 04:24] LABS: Lipase 90 U/L (13-60)
[2025-06-06 04:30] LABS: Anion Gap 14.8 (5-19); Blood Urea Nitrogen 24 mg/dL (8-23); Calcium 8.1 mg/dL (8.5-10.5); Carbon Dioxide 21 mmol/L (22-29); Chloride 108 mmol/L (98-107); Creatinine Clr Calc Pharmacy 20.5523; Glucose 73 mg/dL (65-115); Osmolality Calculated 293 mOsm/kg (285-295); Potassium 3.8 mmol/L (3.5-5.1); Sodium 140 mmol/L (136-145)
--- NOTE | 2025-06-06 08:53 | P.PN_ITS ---
Subjective 2 Subjective: Continues to improve. I changed him to oral oxycodone which was his home dose yesterday. He says he is feeling a lot better and had more rest last night. He reported to me that he was an alcoholic had quit drinking restarted after his and started up again until 4 months ago when he had surgery. He continues to use tobacco. We discussed how tobacco makes chronic and acute pain worse He says he used to be on Xanax for his mental health. I advised that we forego another addictive medication at this time. Once he is tolerating diet we could consider starting an SSRI. He is agreeable Vitals/I&O/Wt Last Vital Signs Temp 97.8 F 06/06/25 08:00 Pulse 52 L 06/06/25 08:00 Resp 12 06/06/25 08:00 BP 115/65 06/06/25 08:00 Pulse Ox 95 06/06/25 08:00 O2 Del Method Room Air 06/06/25 08:00 06/05/25 06/06/25 06/06/25 22:59 06:59 14:59 Intake Total 1295.812 / 1999.395 130 / 2129.395 500 / 500 Output Total 750 / 750 1800 / 2550 Balance 545.812 / 1249.395 -1670 / -420.605 500 / 500 Weight last 48 hrs Weight 60.781 kg Weight 60.441 kg Weight 58.967 kg Weight 58.967 kg Physical Exam 2 Narrative: Thin white male who appears older than 70 Heart : Very distant heart sounds unable to auscultate while patient lying flat Lungs clear to auscultation anteriorly Abdomen is flat he has an ileostomy in place with a full bag of watery stool- light brown liquid. He is tender in the bilateral lower quadrants no rebound rigidity or guarding Extremities no clubbing cyanosis or edema Urinary Catheter Management: Villela: Cath Placed During This Visit: yes Reason for Continuing Indwelling Catheter: Accurate Measurement of Urinary Output in Critically Ill Patients Urinary Catheter Date of Insertion: 06/04/25 Urinary Catheter Time of Insertion: 18:35 Data 06/06/25 03:07 06/06/25 03:07 Micro: Microbiology 06/05/25 04:19 Blood Culture - Preliminary Blood NEGATIVE TO DATE 06/05/25 04:25 Blood Culture - Preliminary Blood NEGATIVE TO DATE 06/04/25 13:01 Blood Culture - Preliminary Blood NEGATIVE TO DATE 06/04/25 12:52 Blood Culture - Preliminary Blood NEGATIVE TO DATE A&P Assessment and plan 1. CALLI (acute kidney injury): 2. Acute hyperkalemia: 3. Abdominal pain: 4. Colostomy present: 5. Hypotension: 6. Tick bite of abdomen: Plan: Hypotension. Levophed stopped last night. Continue to hold lisinopril - Remains unclear etiology - Continue Flagyl for intra-abdominal suspected etiology - C. difficile negative - WBC count down to 7.9 from 15.6 Reported tick bite: There is no laboratory abnormality that would indicate tick bite. Abdominal pain: - lipase still elevated but improved. - Patient receiving low-dose morphine for the pain. CALLI: - Patient is responding to IV fluids. His BUN and creatinine is significantly decreased to 24/2.9 from 37/3.9. Will continue fluid resuscitation until he is drinking sufficiently -Continue to hold Protonix - Avoid nephrotoxic agents no NSAIDs no heparin ordered low molecular weight heparin products History of alcohol abuse Active tobacco abuse Patient has mental health issues as described by taking Xanax. He probably carries a diagnosis of generalized anxiety. He also seems depressed after his has . Once patient is tolerating diet and more improved perhaps on discharge would consider treatment with an SSRI and close follow-up from his primary care doctor and a new consult placed to pain management. If the patient's blood pressure improved throughout the day would consider transfer to the floor PDMP PDMP Reviewed: Not Reviewed Attestations 2 Medical Necessity Statement*: Patient requires continued hospitalization for the treatment of hypotension and abdominal pain and acute kidney injury. Coding Level of Care Code Acute Code for [facility] Diagnoses CALLI (acute kidney injury) N17.9 Acute hyperkalemia E87.5 Abdominal pain R10.9 Colostomy present Z93.3 Hypotension I95.9 Tick bite of abdomen S30.861A; W57.XXXA
[2025-06-06] MEDS: dextrose 5%-sod chloride 0.9% 1,000 ML 125 ML IV ×2 (11:11→20:35)
[2025-06-07] VITALS (31 sets, daily range): BP systolic 109–153; BP diastolic 55–104; PULSE 57–91; RESP 7–26; TEMP 36.6–37.3; O2SAT 94–100
[2025-06-07] MEDS: metroNIDAZOLE IV 500 MG/100 ML PREMIX 100 MG IV ×2 (02:18→08:16)
[2025-06-07] MEDS: oxyCODONE 5 mg IR Tab/Cap 10 MG PO ×6 (02:19→23:02)
[2025-06-07 05:58] LABS: Hematocrit 35.8 % (37-53); Hemoglobin 12.50 g/dL (11.27-16.99); Mean Corpuscular HGB Conc 34.9 g/dL (30-55); Mean Corpuscular Hemoglobin 32.4 pg (27-33); Mean Corpuscular Volume 92.7 fl (82-101); Nucleated Red Blood Cells % 0 %; Platelet Count 202 10^3/cmm (157-399); Red Blood Count 3.86 10^6/uL (3.85-5.65); White Blood Count 8.45 10^3/uL (3.29-11.43)
[2025-06-07 06:24] LABS: Anion Gap 13.8 (5-19); Blood Urea Nitrogen 14 mg/dL (8-23); Calcium 7.7 mg/dL (8.5-10.5); Carbon Dioxide 20 mmol/L (22-29); Chloride 109 mmol/L (98-107); Creatinine Clr Calc Pharmacy 32.1545; Glucose 108 mg/dL (65-115); Osmolality Calculated 289 mOsm/kg (285-295); Potassium 3.8 mmol/L (3.5-5.1); Sodium 139 mmol/L (136-145)
[2025-06-07] MEDS: dextrose 5%-sod chloride 0.9% 1,000 ML 125 ML IV ×3 (06:35→23:02)
--- NOTE | 2025-06-07 12:33 | P.PN_ITS ---
Subjective 2 Subjective: His pain is really unchanged since the first posthospitalization day. He states this is his typical pain that has not gone away since surgery The patient is tolerating a diet. He is getting up to a chair. The pain is not worse with activity and there is modification with the pain management routine that he is on Vitals/I&O/Wt Last Vital Signs Temp 98.4 F 06/07/25 08:00 Pulse 63 06/07/25 12:00 Resp 14 06/07/25 12:00 BP 146/79 06/07/25 12:00 Pulse Ox 97 06/07/25 12:00 O2 Del Method Room Air 06/07/25 12:00 06/06/25 06/07/25 06/07/25 22:59 06:59 14:59 Intake Total 2060 / 3485 1220 / 4705 400 / 400 Output Total 1225 / 1225 1100 / 2325 250 / 250 Balance 835 / 2260 120 / 2380 150 / 150 Weight last 48 hrs Weight 61.689 kg Weight 60.781 kg Physical Exam 2 Narrative: Thin white male who appears older than 70 Heart : Very distant heart sounds unable to auscultate while patient lying flat Lungs clear to auscultation anteriorly Abdomen is flat he has an ileostomy in place He is tender in the bilateral lower quadrants no rebound rigidity or guarding Extremities no clubbing cyanosis or edema Urinary Catheter Management: Villela: Cath Placed During This Visit: yes Reason for Continuing Indwelling Catheter: Accurate Measurement of Urinary Output in Critically Ill Patients Urinary Catheter Date of Insertion: 06/04/25 Urinary Catheter Time of Insertion: 18:35 Data 06/07/25 05:46 06/07/25 05:46 Micro: C. difficile negative A&P Assessment and plan 1. CALLI (acute kidney injury): 2. Acute hyperkalemia: 3. Abdominal pain: 4. Colostomy present: 5. Hypotension: 6. Tick bite of abdomen: Plan: Hypotension. - Has been off Levophed for over 24 hours - Continue to hold lisinopril. Not only for normal tension but also due to renal failure CALLI: - Patient was on lisinopril when he presented. This is likely the culprit. - Renal function is returning quickly now 2 close to normal range at 2.1 -Continue to hold Protonix - Avoid nephrotoxic agents no NSAIDs no heparin ordered low molecular weight heparin products Abdominal pain: - lipase level improved. - Patient switched back to his home dose of oxycodone 10 mg every 4 hours with adequate pain control - [facility]. History of alcohol abuse Active tobacco abuse Patient has mental health issues as described by taking Xanax. He probably carries a diagnosis of generalized anxiety. He also seems depressed after his has . Once patient is tolerating diet and more improved perhaps on discharge would consider treatment with an SSRI and close follow-up from his primary care doctor and a new consult placed to pain management. Transferred to the floor PDMP PDMP Reviewed: Not Reviewed Attestations 2 Medical Necessity Statement*: Patient requires continued hospitalization for the treatment of hypotension and abdominal pain and acute kidney injury. Coding Level of Care Code Acute Code for [facility] Diagnoses CALLI (acute kidney injury) N17.9 Acute hyperkalemia E87.5 Abdominal pain R10.9 Colostomy present Z93.3 Hypotension I95.9 Tick bite of abdomen S30.861A; W57.XXXA
[2025-06-08] VITALS (19 sets, daily range): BP systolic 117–148; BP diastolic 66–80; PULSE 58–71; RESP 10–19; TEMP 36.7–37.1; O2SAT 94–98
[2025-06-08] MEDS: oxyCODONE 5 mg IR Tab/Cap 10 MG PO ×4 (04:39→19:37)
--- NOTE | 2025-06-08 09:27 | PC.NURSE ---
Report called to Denise DOYLE
[2025-06-08] MEDS: dextrose 5%-sod chloride 0.9% 1,000 ML 125 ML IV (13:38)
--- NOTE | 2025-06-08 14:32 | PM.PN ---
Subjective Subjective: Seen this morning. Sitting up in bed. Creatinine 2.1 yesterday. Awaiting labs from this morning. Vitals/I&O/Wt Last Vital Signs Temp 98.1 F 06/08/25 11:37 Pulse 58 L 06/08/25 11:37 Resp 18 06/08/25 13:38 BP 129/66 06/08/25 11:37 Pulse Ox 97 06/08/25 11:37 O2 Del Method Room Air 06/08/25 11:37 06/07/25 06/08/25 06/08/25 22:59 06:59 14:59 Intake Total 2040 / 3690 240 / 3930 1240 / 1240 Output Total 2505 / 2755 1800 / 4555 Balance -465 / 935 -1560 / -625 1240 / 1240 Weight last 48 hrs Weight 61.689 kg Weight 61.689 kg Physical Exam Narrative: Thin white male who appears older than 70 Heart : S1-S2, regular rate rhythm. Lungs clear to auscultation anteriorly Abdomen is flat he has an ileostomy in place He is tender in the bilateral lower quadrants no rebound rigidity or guarding Extremities no clubbing cyanosis or edema Urinary Catheter Management: Villela: Cath Placed During This Visit: yes Reason for Continuing Indwelling Catheter: Accurate Measurement of Urinary Output in Critically Ill Patients Urinary Catheter Date of Insertion: 06/04/25 Urinary Catheter Time of Insertion: 18:35 Data 06/07/25 05:46 06/07/25 05:46 A&P Assessment and plan 1. CALLI (acute kidney injury): 2. Acute hyperkalemia: 3. Abdominal pain: 4. Colostomy present: 5. Hypotension: 6. Tick bite of abdomen: Plan: Hypotension. - Has been off Levophed for over 24 hours - Continue to hold lisinopril. Not only for normal tension but also due to renal failure CALLI: - Patient was on lisinopril when he presented. This is likely the culprit. - Renal function is returning quickly now 2 close to normal range at 2.1 -Continue to hold Protonix - Avoid nephrotoxic agents no NSAIDs no heparin ordered low molecular weight heparin products Abdominal pain: - lipase level improved. - Patient switched back to his home dose of oxycodone 10 mg every 4 hours with adequate pain control - [facility]. History of alcohol abuse Active tobacco abuse Patient has mental health issues as described by taking Xanax. He probably carries a diagnosis of generalized anxiety. He also seems depressed after his has . Once patient is tolerating diet and more improved perhaps on discharge would consider treatment with an SSRI and close follow-up from his primary care doctor and a new consult placed to pain management. Transferred to the floor 06/08/2025 Check labs today. Creatinine 2.1. CT abdomen pelvis reviewed. No acute pathology identified. Unclear what patient's baseline is. Continue to hold lisinopril. Continue normal saline at 75 cc/h. Continue Cipro Flagyl. Will complete 7 days course. Recommend to consult GI. Referred to GI at time of discharge. PDMP PDMP Reviewed: Not Reviewed Attestations Medical Necessity Statement*: Patient requires continued hospitalization for the treatment of hypotension and abdominal pain and acute kidney injury. Diagnoses CALLI (acute kidney injury) N17.9 Acute hyperkalemia E87.5 Abdominal pain R10.9 Colostomy present Z93.3 Hypotension I95.9 Tick bite of abdomen S30.861A; W57.XXXA
--- NOTE | 2025-06-08 14:40 | CTR_ITS ---
PROCEDURE INFORMATION: Exam: CT Abdomen And Pelvis Without Contrast Exam date and time: 06/08/2025 3:59 PM Age: 70 years old Clinical indication: Abdominal pain; Prior surgery; Surgery date: 6+ months; Surgery type: Colostomy, colon resection TECHNIQUE: Imaging protocol: Computed tomography of the abdomen and pelvis without contrast. Radiation optimization: All CT scans at this facility use at least one of these dose optimization techniques: automated exposure control; mA and/or kV adjustment per patient size (includes targeted exams where dose is matched to clinical indication); or iterative reconstruction. COMPARISON: CT abdomen pelvis con [id number] 06/04/2025 2:06 PM RADIATION DOSE METRICS: Total DLP (mGy-cm): 325.37 FINDINGS: Lungs: Stable bilateral pulmonary micronodules measuring up to 6 mm within right lower lobe (3/5). Pleural spaces: Trace left pleural effusion, new from prior study. Liver: Normal. No mass. Gallbladder and biliary ducts: Normal. No calcified stones. No ductal dilation. Pancreas: Normal. No ductal dilation. Spleen: Normal. No splenomegaly. Adrenal glands: Normal. No mass. Kidneys and ureters: Stable left renal cysts. No further imaging follow-up required. . Stomach and bowel: Postsurgical changes of right lower quadrant colostomy with partial sigmoid colon resection. No evidence of bowel obstruction. Appendix: No evidence of appendicitis. Intraperitoneal space: Unremarkable. No free air. No significant fluid collection. Vasculature: Atherosclerosis of the aorta and its main branches. Lymph nodes: Unremarkable. No enlarged lymph nodes. Urinary bladder: Urinary bladder is collapsed about Villela catheter and contains moderate amount of air Reproductive: Unremarkable as visualized. Bones/joints: No fracture. Chronic spondylosis L5-S1. Soft tissues: Unremarkable. CT/CT abdomen pelvis con [id number] IMPRESSION: 1. Redemonstrated postoperative changes of partial sigmoid resection with right lower quadrant colostomy. No evidence of obstruction. 2. Urinary bladder demonstrates circumferential wall thickening and contains Villela catheter and moderate amount of air. Correlate with urinalysis to exclude cystitis. 3. Redemonstrated stable few subpleural pulmonary micronodules bilaterally. For patients at low risk (minimal or absent history of smoking and of other known risk factors), no routine follow-up is indicated. For patients at high risk (history of smoking or of other known risk factors), consider optional CT Chest at 12 months. (Reference: Min) REFERENCES: Min Hanson, et al. Guidelines for Management of Incidental Pulmonary Nodules Detected on CT Images: From the Fleischner Society 2017. Radiology. 2017;284(1):228-243.
[2025-06-09] VITALS (15 sets, daily range): BP systolic 120–163; BP diastolic 68–82; PULSE 65–74; RESP 16–18; TEMP 36.5–37.2; O2SAT 95–97
[2025-06-09] MEDS: dextrose 5%-sod chloride 0.9% 1,000 ML 125 ML IV ×3 (00:51→20:43)
[2025-06-09] MEDS: oxyCODONE 5 mg IR Tab/Cap 10 MG PO ×5 (04:32→21:31)
[2025-06-09 05:20] LABS: Amylase 66 U/L (21-101)
[2025-06-09 05:56] LABS: Hematocrit 34.7 % (37-53); Hemoglobin 12.10 g/dL (11.27-16.99); Mean Corpuscular HGB Conc 34.9 g/dL (30-55); Mean Corpuscular Hemoglobin 31.4 pg (27-33); Mean Corpuscular Volume 90.1 fl (82-101); Nucleated Red Blood Cells % 0 %; Platelet Count 194 10^3/cmm (157-399); Red Blood Count 3.85 10^6/uL (3.85-5.65); White Blood Count 8.20 10^3/uL (3.29-11.43)
[2025-06-09 06:18] LABS: Anion Gap 13.5 (5-19); Blood Urea Nitrogen 4 mg/dL (8-23); Calcium 8.1 mg/dL (8.5-10.5); Carbon Dioxide 21 mmol/L (22-29); Chloride 107 mmol/L (98-107); Creatinine Clr Calc Pharmacy 42.3355; Glucose 124 mg/dL (65-115); Magnesium 1.5 mg/dL (1.7-2.3); Osmolality Calculated 284 mOsm/kg (285-295); Potassium 3.5 mmol/L (3.5-5.1); Sodium 138 mmol/L (136-145)
--- NOTE | 2025-06-09 12:28 | P.PN_ITS ---
Subjective 2 Subjective: Seen this morning. Creatinine improving to 1.6. Magnesium 1.5. Vitals/I&O/Wt Last Vital Signs Temp 98.0 F 06/09/25 10:15 Pulse 71 06/09/25 10:15 Resp 17 06/09/25 10:15 BP 135/71 06/09/25 10:15 Pulse Ox 96 06/09/25 10:15 O2 Del Method Room Air 06/09/25 06:00 06/08/25 06/09/25 06/09/25 22:59 06:59 14:59 Intake Total 1240 / 2480 1120 / 1120 Output Total 1575 / 1575 120 / 1695 Balance -335 / 905 -120 / 785 1120 / 1120 Weight last 48 hrs Weight 62.227 kg Weight 61.689 kg Physical Exam 2 Narrative: Thin white male who appears older than 70 Heart : S1-S2, regular rate rhythm. Lungs clear to auscultation anteriorly Abdomen is flat he has an ileostomy in place He is tender in the bilateral lower quadrants no rebound rigidity or guarding Extremities no clubbing cyanosis or edema Urinary Catheter Management: Villela: Cath Placed During This Visit: yes Reason for Continuing Indwelling Catheter: Other Urinary Catheter Date of Insertion: 06/04/25 Urinary Catheter Time of Insertion: 18:35 Data 06/09/25 05:42 06/09/25 05:42 Micro: Microbiology 06/05/25 02:42 E. coli Shiga-like Toxin (PCR) - Final Stool - Stool Aspirate Salmonella/Shigella Culture - Final Campylobacter (PCR) - Final A&P Assessment and plan 1. CALLI (acute kidney injury): 2. Acute hyperkalemia: 3. Abdominal pain: 4. Colostomy present: 5. Hypotension: 6. Tick bite of abdomen: Plan: Hypotension. - Has been off Levophed for over 24 hours - Continue to hold lisinopril. Not only for normal tension but also due to renal failure CALLI: - Patient was on lisinopril when he presented. This is likely the culprit. - Renal function is returning quickly now 2 close to normal range at 2.1 -Continue to hold Protonix - Avoid nephrotoxic agents no NSAIDs no heparin ordered low molecular weight heparin products Abdominal pain: - lipase level improved. - Patient switched back to his home dose of oxycodone 10 mg every 4 hours with adequate pain control - A dd Cipro to the [facility] for abdominal coverage. History of alcohol abuse Active tobacco abuse Patient has mental health issues as described by taking Xanax. He probably carries a diagnosis of generalized anxiety. He also seems depressed after his has . Once patient is tolerating diet and more improved perhaps on discharge would consider treatment with an SSRI and close follow-up from his primary care doctor and a new consult placed to pain management. Transferred to the floor 06/08/2025 Check labs today. Creatinine 2.1. CT abdomen pelvis reviewed. No acute pathology identified. Unclear what patient's baseline is. Continue to hold lisinopril. Continue normal saline at 75 cc/h. Continue Cipro Flagyl. Will complete 7 days course. Recommend to consult GI. Referred to GI at time of discharge. 06/09/2025 Creatinine 1.6 improving. Continue normal saline 75 cc/h. Continue Cipro Flagyl complete 7 days course GI referral at discharge. Plan to discharge in a.m. PDMP PDMP Reviewed: Not Reviewed Attestations 2 Medical Necessity Statement*: Plan to discharge in a.m. Diagnoses CALLI (acute kidney injury) N17.9 Acute hyperkalemia E87.5 Abdominal pain R10.9 Colostomy present Z93.3 Hypotension I95.9 Tick bite of abdomen S30.861A; W57.XXXA
[2025-06-09] MEDS: magnesium sulfate premix 2 GM/50 ML PIGGYBACK IV (13:07)
--- NOTE | 2025-06-09 15:20 | PC.NURSE ---
Student Nurse attempted IV insertion to R and L A/C. Attempts were unsuccessful. Pt tolerated well. SN notified pt's nurse.
[2025-06-09] MEDS: ondansetron 2 mg/ML SDV 2 mL 4 MG IVP (23:08)
--- NOTE | 2025-06-09 23:14 | PC.NURSE ---
Patient states he is feeling nauseous. Requested Zofran and gave zofran per MAR. No complications.
[2025-06-10] VITALS (8 sets, daily range): BP systolic 117–150; BP diastolic 64–78; PULSE 66–75; RESP 16–18; TEMP 36.6–36.8; O2SAT 93–97
[2025-06-10] MEDS: oxyCODONE 5 mg IR Tab/Cap 10 MG PO ×2 (03:50→08:09)
[2025-06-10 04:19] LABS: Hematocrit 34.5 % (37-53); Hemoglobin 12.10 g/dL (11.27-16.99); Mean Corpuscular HGB Conc 35.1 g/dL (30-55); Mean Corpuscular Hemoglobin 32.0 pg (27-33); Mean Corpuscular Volume 91.3 fl (82-101); Nucleated Red Blood Cells % 0 %; Platelet Count 185 10^3/cmm (157-399); Red Blood Count 3.78 10^6/uL (3.85-5.65); White Blood Count 8.55 10^3/uL (3.29-11.43)
[2025-06-10] MEDS: dextrose 5%-sod chloride 0.9% 1,000 ML 125 ML IV (04:34)
[2025-06-10 04:37] LABS: Anion Gap 11.0 (5-19); Blood Urea Nitrogen 3 mg/dL (8-23); Calcium 7.7 mg/dL (8.5-10.5); Carbon Dioxide 22 mmol/L (22-29); Chloride 106 mmol/L (98-107); Creatinine Clr Calc Pharmacy 48.3834; Glucose 110 mg/dL (65-115); Magnesium 1.9 mg/dL (1.7-2.3); Osmolality Calculated 279 mOsm/kg (285-295); Potassium 3.0 mmol/L (3.5-5.1); Sodium 136 mmol/L (136-145)
--- NOTE | 2025-06-10 11:17 | PM.DCS ---
Discharge Providers Date of Admission: 06/04/25 16:20 Date of Discharge: June 10, 2025 Attending Provider at Admission: Christopher Mcmullen DO Attending Provider at Discharge: Lisa German MD Primary Care Provider: Miley Ray MD Diagnoses at Discharge Discharge Diagnosis 1. CALLI (acute kidney injury): 2. Acute hyperkalemia: 3. Abdominal pain: 4. Colostomy present: 5. Hypotension: 6. Tick bite of abdomen: Reason for Visit Reason for Visit: abd pain, htn Hospital Course Hospital Course Patient presented to the hospital with CALLI. Was also hypotensive. Lisinopril was held and discontinued. He was given IV fluids at which point CALLI did improve. He was treated with Cipro Flagyl during hospitalization. Will need to follow-up with GI at discharge. Patient does have an upcoming PCP appointment which she intends to keep. Consult for pain management was placed. Physical Exam Narrative: Thin white male who appears older than 70 Heart : S1-S2, regular rate rhythm. Lungs clear to auscultation anteriorly Abdomen is flat he has an ileostomy in place pain improved bilateral lower quadrants no rebound rigidity or guarding Extremities no clubbing cyanosis or edema Urinary Catheter Management: Villela: Cath Placed During This Visit: yes, but has since been removed by the nurse Reason for Continuing Indwelling Catheter: Decision to DC Catheter Urinary Catheter Date of Insertion: 06/04/25 Urinary Catheter Time of Insertion: 18:35 Date Urinary Catheter Removed: 06/10/25 Time Urinary Catheter Discontinued: 10:57 Discharge Data Studies Completed and Pending Completed Studies During Hospitalization Category Date Time Status CT abdomen pelvis wo con [id number] Stat Cat Scan 06/04/25 12:[address] abdomen pelvis wo con [id number] Urgent Cat Scan 06/08/25 14:40 Completed Stool Culture - Enteric [Salmonella / Shigella / Campy] Lab 06/05/25 02:42 Completed Routine US echo limited [CV. echo limited [id number]] Stat Ultrasound 06/04/25 12:51 Completed Radiology Impressions Abdomen/Pelvis CT 06/08/25 14:40 IMPRESSION: 1. Redemonstrated postoperative changes of partial sigmoid resection with right lower quadrant colostomy. No evidence of obstruction. 2. Urinary bladder demonstrates circumferential wall thickening and contains Villela catheter and moderate amount of air. Correlate with urinalysis to exclude cystitis. 3. Redemonstrated stable few subpleural pulmonary micronodules bilaterally. For patients at low risk (minimal or absent history of smoking and of other known risk factors), no routine follow-up is indicated. For patients at high risk (history of smoking or of other known risk factors), consider optional CT Chest at 12 months. (Reference: Min) REFERENCES: Min Hanson et al. Guidelines for Management of Incidental Pulmonary Nodules Detected on CT Images: From the Fleischner Society 2017. Radiology. 2017;284(1):228-243. Laboratory Results WBC 8.55 10^3/uL (3.29-11.43) 06/10/25 03:06 RBC 3.78 10^6/uL (3.85-5.65) L 06/10/25 03:06 Hgb 12.10 g/dL (11.27-16.99) 06/10/25 03:06 Hct 34.5 % (37-53) L 06/10/25 03:06 MCV 91.3 fl (82-101) 06/10/25 03:06 MCH 32.0 pg (27-33) 06/10/25 03:06 MCHC 35.1 g/dL (30-55) 06/10/25 03:06 RDW 12.9 % (12.1-15.1) 06/10/25 03:06 Plt Count 185 10^3/cmm (157-399) 06/10/25 03:06 MPV 9.6 fL (7.4-10.4) 06/10/25 03:06 Neut % (Auto) 62.8 % 06/10/25 03:06 Lymph % (Auto) 21.2 % 06/10/25 03:06 [place] % (Auto) 11.1 % 06/10/25 03:06 Eos % (Auto) 4.2 % 06/10/25 03:06 Baso % (Auto) 0.6 % 06/10/25 03:06 Neut # (Auto) 5.37 10^3/uL (1.8-7.7) 06/10/25 03:06 Lymph # (Auto) 1.8 10^3/uL (0.8-4.8) 06/10/25 03:06 [place] # (Auto) 1.0 10^3/uL (0.2-0.9) H 06/10/25 03:06 Eos # (Auto) 0.4 10^3/uL (0.0-0.8) 06/10/25 03:06 Baso # (Auto) 0.1 10^3/uL (0.0-0.1) 06/10/25 03:06 Nucleated RBC % (auto) 0 % 06/10/25 03:06 Nucleated RBCs # 0.0 /100WBC 06/10/25 03:06 Sodium 136 mmol/L (136-145) 06/10/25 03:06 Potassium 3.0 mmol/L (3.5-5.1) L 06/10/25 03:06 Chloride 106 mmol/L (98-107) 06/10/25 03:06 Carbon Dioxide 22 mmol/L (22-29) 06/10/25 03:06 Anion Gap 11.0 (5-19) 06/10/25 03:06 BUN 3 mg/dL (8-23) L 06/10/25 03:06 Creatinine 1.4 mg/dL (0.7-1.2) H 06/10/25 03:06 GFR Calculation 50.2 mL/min (90-130) L 06/10/25 03:06 Glucose 110 mg/dL (65-115) 06/10/25 03:06 POC Glucose 97 mg/dL (70-110) 06/04/25 17:14 Calculated Osmolality 279 mOsm/kg (285-295) L 06/10/25 03:06 Calcium 7.7 mg/dL (8.5-10.5) L 06/10/25 03:06 Magnesium 1.9 mg/dL (1.7-2.3) 06/10/25 03:06 Total Bilirubin 0.4 mg/dL (0.15-1.2) 06/04/25 12:11 AST 13 U/L (0-40) 06/04/25 12:11 ALT 12 U/L (0-41) 06/04/25 12:11 Alkaline Phosphatase 62 U/L (40-130) 06/04/25 12:11 Troponin T Baseline 30 ng/L (0-15) H 06/04/25 12:11 Troponin T 120 Minute 29.47 ng/L (0-15) H 06/04/25 13:57 Delta Troponin T -0.53 ABS# (0-10) L 06/04/25 13:57 Troponin T Hi Sens 6Hr 29.49 ng/L (0-15) H 06/04/25 18:32 Troponin T Hi Sens 6Hr Delta -0.51 ng/L (0-12) L 06/04/25 18:32 Total Protein 7.2 g/dL (6.6-8.7) 06/04/25 12:11 Albumin 3.8 g/dL (3.5-5.2) 06/04/25 12:11 Globulin 3.4 g/dL (1.3-4.6) 06/04/25 12:11 Amylase 66 U/L (21-101) 06/07/25 05:46 Lipase 90 U/L (13-60) H 06/06/25 03:07 Urine Color Yellow (Yellow) 06/04/25 17:32 Urine Appearance Clear (CLEAR) 06/04/25 17:32 Urine pH 5.0 (5-7) 06/04/25 17:32 Ur Specific [place] 1.013 (1.005-1.030) 06/04/25 17:32 Urine Protein 2+ (Negative) A 06/04/25 17:32 Urine Glucose (UA) 2+ (Normal) H 06/04/25 17:32 Urine Ketones Trace (Negative) 06/04/25 17:32 Urine Blood 1+ (Negative) A 06/04/25 17:32 Urine Nitrate Negative (Negative) 06/04/25 17:32 Urine Bilirubin Negative (Negative) 06/04/25 17:32 Urine Urobilinogen 0.2 mg/dL (Negative) 06/04/25 17:32 Ur Leukocyte Esterase Negative (Negative) 06/04/25 17:32 Urine RBC 3-5 /hpf (0-2) 06/04/25 17:32 Urine WBC 0-5 /hpf (0-5) 06/04/25 17:32 Ur Squamous Epith Cells 0-5 /hpf (0-5) 06/04/25 17:32 Amorphous Sediment Not Reportable 06/04/25 17:32 Urine Bacteria None seen /hpf (NONE) 06/04/25 17:32 Hyaline Casts 29.34 /lpf 06/04/25 17:32 C. difficile (PCR) Negative (Negative) 06/05/25 02:42 Blood Type B Negative 06/04/25 13:01 Rho(D) Type Rh negative 06/04/25 13:01 Antibody Screen Negative 06/04/25 13:01 Vitals Last Vital Signs Temp 98.2 F 06/10/25 07:35 Pulse 70 06/10/25 07:35 Resp 18 06/10/25 08:09 BP 117/64 06/10/25 07:35 Pulse Ox 93 06/10/25 07:35 O2 Del Method Room Air 06/10/25 07:35 Discharge Plan Discharge Patient Disposition: Home Condition: Stable Prescriptions: New metronidazole 500 mg Tablet 500 mg PO TID Qty: 9 0RF ciprofloxacin HCl 500 mg Tablet 500 mg PO BID@0500,1700 Qty: 6 0RF amlodipine 5 mg tablet 5 mg PO DAILY Qty: 30 0RF Continued loperamide 2 mg capsule 2 mg PO Q6H PRN (Reason: Diarrhea) ondansetron 8 mg tablet,disintegrating 8 mg PO Q8H PRN (Reason: Nausea And Vomiting) pantoprazole 40 mg tablet,delayed release (DR/EC) 40 mg PO BID Changed oxycodone 5 mg tablet 10 mg PO Q8H PRN (Reason: Pain) Qty: 20 0RF Discontinued lisinopril 20 mg tablet 20 mg PO DAILY Discharge Order = DC NOW: Discharge Order (Routine); Ordered 06/10/25 Ordered By: Lisa German Other Ambulatory Orders: Basic Metabolic Panel (Routine) Timeframe: 3 Days Facility: [facility] - Location: Lab - Main Lab Ordered By: Lisa German Referrals: Miley Ray MD [Primary Care Provider, Family Practice] - 1-3 days Referral Note: We have notified your physician's clinic of the need for a follow-up appointment to be scheduled. If you have not heard from them within the next 2 business days, please call them directly. Maira Mason MD [Referring] - 4-7 days Referral Note: We have notified your physician's clinic of the need for a follow-up appointment to be scheduled. If you have not heard from them within the next 2 business days, please call them directly. Discharge Diet: Usual diet Discharge Activity: Resume usual activity Patient Instructions: Ciprofloxacin (By mouth), Metronidazole (By mouth), Amlodipine (By mouth), Acute Kidney Injury (DC), Opioid Safety, Pain Management, Patient Portal & Van Instructions Activity Restrictions/Additional Instructions: F/U with GI as previously scheduled in [facility]. Discharge Attestations Time Spent in Discharge Care*: less than 30 min Quality Metrics Clinical Quality Measures [ No reported AMI, CVA or VTE this stay] Coding Level of Care Code Acute Code for [facility] Fwd Diagnoses CALLI (acute kidney injury) N17.9 Acute hyperkalemia E87.5 Abdominal pain R10.9 Colostomy present Z93.3 Hypotension I95.9 Tick bite of abdomen S30.861A; W57.XXXA
== END 2025-06-10 14:15 | disposition home or self-care (01) | DRG 684 ==
LOC: ER 15:44 → CSU 16:20 → ICU 06-05 04:03 → MEDSURG 06-08 09:34
PROVIDERS: Admitting Provider Internal Medicine; Emergency Provider Family Medicine; PCP Family Medicine; Visit Provider Internal Medicine
DX: N17.9 Acute kidney failure, unspecified (principal); E87.5 Hyperkalemia; R10.9 Unspecified abdominal pain; I95.9 Hypotension, unspecified; S30.861A Insect bite (nonvenomous) of abdominal wall, initial encounter; W57.XXXA Bitten or stung by nonvenomous insect and other nonvenomous arthropods, initial encounter; F32.A Depression, unspecified; F41.9 Anxiety disorder, unspecified; F10.11 Alcohol abuse, in remission; Z90.49 Acquired absence of other specified parts of digestive tract; Z93.3 Colostomy status
CPT/HCPCS: 36415; 36416; 51702; 74176; 80048; 80053; 81001; 82150; 82962; 83690; 83735; 84484; 85025; 86850; 86900; 87040; 87045; 87427; 87449; 87493; 93005; 93308; 96361; 96374; 96375; 99285; J2270; J2405; J3475; J3490; J7030; J7042; J7050; J7060; J9999; Q0162